=== PATIENT | female | born 1980 | race Caucasian/White ===

== ENCOUNTER 2019-01-05 22:06 | Emergency (ER) | payer SELFPAY ==
[~2019-01-05] VITALS: Ht 160 cm; Wt 49.9 kg
--- NOTE | 2019-01-05 22:06 | NUR ---
PT BIBA BLS. TAKEN TO BED 6. [place] [employer] AT BEDSIDE.
[2019-01-05 22:09] VITALS: BP 131/94
--- NOTE | 2019-01-05 22:16 | NUR ---
Dr. Gay examining patient.
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
[2019-01-05] MEDS ORDERED: ACETAMINOPHEN EXTRA STRENGTH 500 MG TAB PO ONE (22:25)
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
--- NOTE | 2019-01-05 22:38 | NUR ---
PT TAKEN TO RAD
--- NOTE | 2019-01-05 23:13 | NUR ---
PT RETURN FROM RAD
[2019-01-05] MEDS ORDERED: KETOROLAC 60 MG/2 ML VIAL IM ONE (23:20)
[2019-01-05 23:40] VITALS: BP 124/76
== END 2019-01-05 23:40 | disposition home or self-care (01) ==
LOC: MED 22:06
DX: S05.11XA Contusion of eyeball and orbital tissues, right eye, initial encounter (principal); S10.93XA Contusion of unspecified part of neck, initial encounter; S40.012A Contusion of left shoulder, initial encounter; S40.011A Contusion of right shoulder, initial encounter; S30.1XXA Contusion of abdominal wall, initial encounter; S93.401A Sprain of unspecified ligament of right ankle, initial encounter; S09.90XA Unspecified injury of head, initial encounter; J45.909 Unspecified asthma, uncomplicated; I10 Essential (primary) hypertension; F17.210 Nicotine dependence, cigarettes, uncomplicated; Z88.0 Allergy status to penicillin; Y04.0XXA Assault by unarmed brawl or fight, initial encounter; Y93.89 Activity, other specified; Y92.89 Other specified places as the place of occurrence of the external cause; Y99.0 Civilian activity done for income or pay
CPT/HCPCS: 70450; 70480; 71046; 72125; 73140; 73610; 96372; 99284; J1885

== ENCOUNTER 2020-09-05 21:12 | Emergency (ER) | payer MEDICAID, SELFPAY ==
[~2020-09-05] VITALS: Ht 165.1 cm; Wt 45.4 kg
[2020-09-05 21:25] VITALS: BP 131/89
--- NOTE | 2020-09-05 21:28 | NUR ---
PT BIB [place] [employer] IN [place].
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
--- NOTE | 2020-09-05 21:35 | NUR ---
PT REFUSED TDAP VACCINE EXPLAINED RISK AND BENEFITS. GAVE VIS TO READ PT STILL WISHES TO REFUSE AT THIS TIME, STATES "NO I AM OKAY". DR. DE OLIVEIRA NOTIFIED GAVE NO NEW ORDERS.
--- NOTE | 2020-09-05 21:36 | NUR ---
PTS HAND WOUND WAS CLEANED WITH NS. DEMABOND PLACED TO SEAL WOUND. PTS PMSC WNL.
[2020-09-05 21:55] VITALS: BP 131/89
--- NOTE | 2020-09-05 21:55 | NUR ---
PATIENT BIB [place] [employer]. PATIENT EXAMINED BY DR. DE OLIVEIRA. PATIENT MEDICALLY CLEARED AND RELEASED IN CUSTODY IN STABLE CONDITION. ORIGINAL PRE-BOOK FORM GIVEN TO OFFICER AMARI #[id number].
== END 2020-09-05 21:55 ==
LOC: MED 21:12
DX: S61.412A Laceration without foreign body of left hand, initial encounter (principal); J45.909 Unspecified asthma, uncomplicated; I10 Essential (primary) hypertension; Z88.0 Allergy status to penicillin; Z02.89 Encounter for other administrative examinations; Y04.8XXA Assault by other bodily force, initial encounter; Y93.89 Activity, other specified; Y92.89 Other specified places as the place of occurrence of the external cause; Y99.8 Other external cause status
CPT/HCPCS: 12001; 90715; 99283

== ENCOUNTER 2021-05-04 10:00 | Emergency (ER) | payer MEDICAID, SELFPAY ==
[~2021-05-04] VITALS: Ht 157.5 cm; Wt 45.4 kg
[~2021-05-04 10:00] MED LIST: QUET25TA PO; RIS1 PO; SULF-58 PO
--- NOTE | 2021-05-04 10:01 | NUR ---
PT BIBA TAKEN TO ER BED 5.
[2021-05-04 10:04] VITALS: BP 155/82
--- NOTE | 2021-05-04 10:13 | NUR ---
COLLECTED MICHELLE ANDREWS AND MICHELLE PIERSON. WALKED TO LAB.
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
--- NOTE | 2021-05-04 10:27 | NUR ---
IV ESTABLISHED TO RIGHT AC 20G, GOOD BLOOD RETURN, COLLECTED BLOOD GAVE TO KAREN NEGOTIATIONS DIRECTOR AT PT BEDSIDE.
--- NOTE | 2021-05-04 10:28 | NUR ---
PT STATES SHE IS UNABLE TO PROVIDE UA AT THIS TIME REQUESTED JUICE MADE AWARE, PROVIDED AT THIS TIME.
--- NOTE | 2021-05-04 10:36 | NUR ---
SPOKE WITH SHAD FROM POSION CONTROL. STATES SYMPTOMS CAN MIMIC AN ETHANOL INTOXICATION. PERFORM UDS, ASA LEVEL, CHEM, AND PLACE PT ON PUSHER RUNNER. MD MADE AWARE CONTINUE TO MONITOR.
--- NOTE | 2021-05-04 10:36 | NUR ---
RAD at bedside
[2021-05-04 10:43] LABS: BASOPHILS % (AUTO) 0.5 % (0.0-2.0); EOSINOPHILS # (AUTO) 0.1 K/uL (0-0.4); EOSINOPHILS % (AUTO) 1.3 % (0.0-4.0); HEMATOCRIT 36.8 % (36-48); LYMPHOCYTES # (AUTO) 1.6 K/uL (2.5-16.5); LYMPHOCYTES % (AUTO) 23.6 % (20.5-51.1); MEAN CORPUSCULAR HEMOGLOBIN 24 pg (27-31); MEAN CORPUSCULAR HGB CONC 33 g/dL (33-37); MEAN CORPUSCULAR VOLUME 73.7 fL (80-94); MONOCYTES # (AUTO) 0.8 K/uL (0.8-1.0); MONOCYTES % (AUTO) 11.5 % (1.7-9.3); NEUTROPHILS # (AUTO) 4.4 K/uL (1.8-7.7); NEUTROPHILS % (AUTO) 63.1 % (42.2-75.2); PLATELET COUNT (AUTO) 352 K/uL (140-450); RED BLOOD CELL COUNT(AUTO) 4.99 MIL/uL (4.20-5.40); RED CELL DISTRIBUTION WIDTH 16.9 % (11.6-13.7); WHITE BLOOD COUNT (AUTO) 6.9 K/uL (4.8-10.8)
--- NOTE | 2021-05-04 11:19 | NUR ---
PT SLEEPING ON RIGHT SIDE, VSS, WILL CONTINUE TO MONITOR.
[2021-05-04 11:35] LABS: ALBUMIN 3.9 g/dL (3.4-5.0); ANION GAP 14.9 (8-16); ASPARTATE AMINOTRANSFERASE 16 U/L (15-37); CARBON DIOXIDE 26.3 mmol/L (21-32); CHLORIDE 104 mmol/L (98-107); CREATININE 0.8 mg/dL (0.6-1.3); GFR ARICAN-AMERICAN 103 mL/min (>90); GLUCOSE 89 mg/dL (74-106); POTASSIUM 3.2 mmol/L (3.5-5.1); SODIUM SERUM 142 mmol/L (136-145); TOTAL BILIRUBIN 0.8 mg/dL (0.0-1.0); UREA NITROGEN, BLOOD 8 mg/dL (7-18)
[2021-05-04 11:36] LABS: SALICYLATE < 2.8 mg/dL (2.8-20.0)
[2021-05-04 12:03] LABS: ACETAMINOPHEN < 0.5 ug/ml (10-30)
--- NOTE | 2021-05-04 12:49 | NUR ---
PT SLEEPING, VISIBLE EQUAL RISE AND FALL OF CHEST, VSS, WILL CONTINUE TO MONITOR.
--- NOTE | 2021-05-04 13:29 | NUR ---
PT SUPINE, CALM AND COOPERATIVE, WILL CONTINUE TO MONITOR.
--- NOTE | 2021-05-04 14:26 | NUR ---
ATTEMPTED TO TELEPSYCH PT, PT REFUSING TO SPEAK WITH PSYCHIATRIST. WILL CONTINUE TO MONITOR.
--- NOTE | 2021-05-04 14:39 | NUR ---
PT LAYING ON LEFT SIDE, VSS, WILL CONTINUE TO MONITOR.
--- NOTE | 2021-05-04 15:13 | NUR ---
PT AMBULATED TO RESTROOM FOR UA COLLECTION.
--- NOTE | 2021-05-04 15:15 | NUR ---
PT AMBULATED TO ER BED 5 WITH A STEADY GAIT.
[2021-05-04 16:18] LABS: APPEARANCE,URINE CLEAR (CLEAR); BILIRUBIN,URINE NEGATIVE (NEGATIVE); BLOOD, URINE NEGATIVE (NEGATIVE); COLOR,URINE YELLOW (YELLOW); LEUKOCYTE ESTERASE ,URINE NEGATIVE (NEGATIVE); NITRITE, URINE NEGATIVE (NEGATIVE); UGLUCOSE NEGATIVE (NEGATIVE)
[2021-05-04 16:33] LABS: BARBITURATE, URINE NEGATIVE ng/ml (NEG <=200); BENZODIAZEPINE, URINE NEGATIVE ng/mL (NEG <=200); CANNABINOID, URINE NEGATIVE ng/mL (NEG <=50); COCAINE, URINE NEGATIVE ng/mL (NEG <=300); OPIATE, URINE NEGATIVE ng/mL (NEG <=2000); PHENCYCLIDINE SCREEN,URINE NEGATIVE ng/mL (NEG <=25)
--- NOTE | 2021-05-04 16:58 | NUR ---
PT RESTING HOB ELEVATED, EATING QUIETLY, VSS, WILL CONTINUE TO MONITOR.
--- NOTE | 2021-05-04 17:17 | NUR ---
Packet received for placement
--- NOTE | 2021-05-04 17:18 | NUR ---
Packet has been faxed to the folloeing facilities [facility]
--- NOTE | 2021-05-04 17:39 | NUR ---
SPOKE WITH DAGMAR FROM [facility]. ACCEPTING DR IS HUNTER CANDELARIO TO [facility]. PT CAN ARRIVE AT 0000. TRANSPORTATION TO BE SET UP.
--- NOTE | 2021-05-04 18:22 | NUR ---
PT PROVIDED WITH DINNER TRAY, WILL CONTINUE TO MONITOR.
--- NOTE | 2021-05-04 19:19 | NUR ---
RECEIVED REPORT FROM JAVI MAR
--- NOTE | 2021-05-04 20:37 | NUR ---
provided patient with water. patient is fidgeting, scratching, and says she is itchy. ERMD made aware
[2021-05-04] MEDS: HYDROXYZINE HYDROCHLORIDE 25 MG TAB PO ONE (20:56)
[2021-05-04] MEDS: POTASSIUM CHLORIDE 10 MEQ TABER PO ONE (21:37)
--- NOTE | 2021-05-04 21:45 | NUR ---
REPORT RECEIVED FROM JAVI GOODEN FOR CONTINUITY OF PT CARE AT THIS TIME.
--- NOTE | 2021-05-04 21:55 | NUR ---
PT APPEARS TO BE RESTING W EYES CLOSED IN R LATERAL POSITION. BLANKET ON. BREATHING EVEN AND UNLABORED. NAD NOTED, WILL CONTINUE TO MONITOR.
--- NOTE | 2021-05-05 02:43 | NUR ---
NO CHANGE IN PT STATUS AT THIS TIME.
--- NOTE | 2021-05-05 04:37 | NUR ---
NO CHANGE IN PT STATUS AT THIS TIME. BREATHING EVEN AND UNLABORED. NAD NOTED, WILL CONTINUE TO MONITOR.
--- NOTE | 2021-05-05 06:19 | NUR ---
PT APPEARS TO BE RESTING W EYES CLOSED IN R LATERAL POSITION W BLANKET ON. HOB SLIGHTLY ELEVATED, BED LOCKED IN LOWEST POSITION W X1 SIDERAIL UP. BREATHING EVEN AND UNLABORED. NAD NOTED, WILL CONTINUE TO MONITOR.
--- NOTE | 2021-05-05 07:08 | NUR ---
[facility] TRANSPORT AT BEDSIDE
--- NOTE | 2021-05-05 07:10 | NUR ---
SPOKE TO JAVI PERKINS FROM FROM [facility]. PER JAVI PERKINS PT STILL HAS A BED AT THE HOSPITAL. TO CALL BACK TO GIVE REPORT AT [phone].
--- NOTE | 2021-05-05 07:12 | NUR ---
Pt report given to JAVI HOPKINS. Transfer of care at this time.
--- NOTE | 2021-05-05 07:18 | NUR ---
Pt report given to JAVI LAINEZ FROM [facility]. Transfer of care at this time.
[2021-05-05 07:26] VITALS: BP 96/70
--- NOTE | 2021-05-05 07:26 | NUR ---
Patient to be transferred to [facility]. Receiving facility has accepting physician and available space. ER physician has signed transfer form. Patient or responsible alliance party has agreed to transfer and signed form. Patient belongings inventoried and will be sent with patient. Copy of nursing notes, lab reports, EKG, Physicians Orders and X-rays to be sent with patient. Report called to JAVI LAINEZ at receiving facility. [facility] ambulance service TAKING PT AT THIS TIME.
--- NOTE | 2021-05-05 07:26 | NUR ---
Rustam lal in EDM - 05/05/21 at 0730 by GO Pt report given to JAVI LAINEZ FROM [facility]. Transfer of care at this time.
== END 2021-05-05 07:26 ==
LOC: MED 10:00
DX: R45.851 Suicidal ideations (principal); F15.129 Other stimulant abuse with intoxication, unspecified; Z20.822 Contact with and (suspected) exposure to COVID-19; F20.9 Schizophrenia, unspecified; F31.9 Bipolar disorder, unspecified; J45.909 Unspecified asthma, uncomplicated; I10 Essential (primary) hypertension; Z79.2 Long term (current) use of antibiotics; Z79.899 Other long term (current) drug therapy; Z88.0 Allergy status to penicillin
CPT/HCPCS: 36415; 71045; 80053; 80305; 81003; 81025; 82550; 84484; 85025; 87426; 93005; 99285; G0480; G0482; Q0092; U0003

== ENCOUNTER 2021-07-09 17:55 | Emergency (ER) | payer MEDICAID ==
[~2021-07-09] VITALS: Ht 162.6 cm; Wt 45.4 kg
[2021-07-09 18:49] VITALS: BP 154/104
[2021-07-09] MEDS ORDERED: LIDOCAINE/EPI 1% 1:100000 20 ML VIAL INJ ONE ×2 (19:35→21:25)
[2021-07-09] MEDS ORDERED: BACITRACIN OINT 500 UNITS/GM PKT TP ONE ×2 (19:35→21:25)
[2021-07-09 20:00] LABS: BASOPHILS % (AUTO) 0.3 % (0.0-2.0); EOSINOPHILS % (AUTO) 0.5 % (0.0-4.0); HEMATOCRIT 30.3 % (36-48); HEMOGLOBIN 9.9 g/dL (12.0-16.0); LYMPHOCYTES # (AUTO) 1.1 K/uL (2.5-16.5); LYMPHOCYTES % (AUTO) 12.9 % (20.5-51.1); MEAN CORPUSCULAR HEMOGLOBIN 24 pg (27-31); MEAN CORPUSCULAR HGB CONC 33 g/dL (33-37); MEAN CORPUSCULAR VOLUME 73.5 fL (80-94); MONOCYTES # (AUTO) 0.8 K/uL (0.8-1.0); MONOCYTES % (AUTO) 9.5 % (1.7-9.3); NEUTROPHILS # (AUTO) 6.4 K/uL (1.8-7.7); NEUTROPHILS % (AUTO) 76.8 % (42.2-75.2); PLATELET COUNT (AUTO) 486 K/uL (140-450); RED BLOOD CELL COUNT(AUTO) 4.12 MIL/uL (4.20-5.40); RED CELL DISTRIBUTION WIDTH 16.1 % (11.6-13.7); WHITE BLOOD COUNT (AUTO) 8.3 K/uL (4.8-10.8)
[2021-07-09 20:18] LABS: ALBUMIN 3.6 g/dL (3.4-5.0); ANION GAP 10.2 (8-16); ASPARTATE AMINOTRANSFERASE 21 U/L (15-37); CARBON DIOXIDE 28.7 mmol/L (21-32); CHLORIDE 108 mmol/L (98-107); CREATININE 0.8 mg/dL (0.6-1.3); GFR ARICAN-AMERICAN 103 mL/min (>90); GLUCOSE 102 mg/dL (74-106); POTASSIUM 3.9 mmol/L (3.5-5.1); SODIUM SERUM 143 mmol/L (136-145); TOTAL BILIRUBIN 0.4 mg/dL (0.0-1.0); UREA NITROGEN, BLOOD 13 mg/dL (7-18)
[2021-07-09 20:19] LABS: SALICYLATE < 2.8 mg/dL (2.8-20.0)
[2021-07-09 20:20] LABS: ACETAMINOPHEN < 0.5 ug/ml (10-30)
--- NOTE | 2021-07-09 21:29 | NUR ---
ASSUMED CARE AT THIS TIME Addendum: 07/09/21 at 2130 by JASON AWAITING LACERATION REPair
--- NOTE | 2021-07-10 06:45 | NUR ---
ASSUMED CARE OF PT AT THIS TIME. PT SLEEPING WITH EVEN AND UNLABORED RESPIRATIONS NOTED, NO DISTRESS NOTED. WILL CONTINUE TO MONITOR
--- NOTE | 2021-07-10 10:07 | NUR ---
PT SLEEPING QUIETLY AT THIS TIME, EVEN RISE AND FALL OF CHEST OBSERVED. NO DISTRESS NOTED, WILL CONTINUE TO MONITOR
--- NOTE | 2021-07-10 13:17 | NUR ---
PT PROVIDED FOOD AT THIS TIME, ALL NEEDS MET.
--- NOTE | 2021-07-10 15:07 | NUR ---
PT AMBULATED TO RESTROOM WITH STEADY GAIT. PT PROVIDED NEW CLEAN BLANKET, ALL NEEDS MET AT THIS TIME.
[2021-07-10 18:21] LABS: BARBITURATE, URINE NEGATIVE ng/ml (NEG <=200); BENZODIAZEPINE, URINE NEGATIVE ng/mL (NEG <=200); CANNABINOID, URINE NEGATIVE ng/mL (NEG <=50); COCAINE, URINE NEGATIVE ng/mL (NEG <=300); OPIATE, URINE NEGATIVE ng/mL (NEG <=2000); PHENCYCLIDINE SCREEN,URINE NEGATIVE ng/mL (NEG <=25)
--- NOTE | 2021-07-10 18:59 | NUR ---
Packet received for placement Has been faxed to the following facilities [facility]
--- NOTE | 2021-07-10 19:10 | NUR ---
PT PROVIDED WITH DINNER TRAY. PT EATING QUIETLY AT THIS TIME.
--- NOTE | 2021-07-10 19:49 | NUR ---
REPORT GIVEN TO [employer]AR[employer] BOAT OPERATOR, TRANSFER OF CARE AT THIS TIME
--- NOTE | 2021-07-10 21:42 | NUR ---
PT SLEEPING. CHEST RISE AND FALL EVEN. ALL NEEDS MET AT THIS TIME
--- NOTE | 2021-07-11 00:12 | NUR ---
PT SLEEPING QUIETLY AT THIS TIME, EVEN RISE AND FALL OF CHEST OBSERVED. NO DISTRESS NOTED
--- NOTE | 2021-07-11 02:17 | NUR ---
PT SLEEPING QUIETLY AT THIS TIME, EVEN RISE AND FALL OF CHEST OBSERVED. NO DISTRESS NOTED
--- NOTE | 2021-07-11 04:13 | NUR ---
PT SLEEPING QUIETLY AT THIS TIME, EVEN RISE AND FALL OF CHEST OBSERVED. NO DISTRESS NOTED
--- NOTE | 2021-07-11 07:15 | NUR ---
Patient appears to be resting comfortably in bed. Vital Signs within normal limits. Respirations even and unlabored.
--- NOTE | 2021-07-11 10:39 | NUR ---
Patient appears to be resting comfortably in bed. Vital Signs within normal limits. Respirations even and unlabored.
--- NOTE | 2021-07-11 10:42 | NUR ---
called for update. pt did not want to talk to him right now "because she want to sleep a little longer.'
--- NOTE | 2021-07-11 15:16 | NUR ---
LUNCH GIVEN TO PT
--- NOTE | 2021-07-11 18:41 | NUR ---
PT MOVED TO ER BED 6. [address] WILL CONTINUE TO MONITOR
--- NOTE | 2021-07-11 19:35 | NUR ---
RESTING IN BED WITH EYES CLOSED, RESPIRATIONS REGULAR AND UNLABORED
--- NOTE | 2021-07-11 22:06 | NUR ---
Packet has been faxed to the following facilities [facility]
--- NOTE | 2021-07-12 | NUR ---
RESTING IN BED WITH EYES CLOSED. RESPIRATIONS REGULAR AND UNLABORED
--- NOTE | 2021-07-12 06:00 | NUR ---
Patient appears to be resting comfortably in bed. Vital Signs within normal limits. Respirations even and unlabored.
--- NOTE | 2021-07-12 07:11 | NUR ---
JOSHUA OF PT CALLING.
--- NOTE | 2021-07-12 07:12 | NUR ---
GRANDFATHER PHONE NUMBER [phone] ([place]) [place] STARKS
--- NOTE | 2021-07-12 12:01 | NUR ---
Patient's 5150 set to today at 17:30. Will need re-eval for ongoing placement. Please fax new 5150 to Call Center at [phone] if ongoing criteria for placement is needed
--- NOTE | 2021-07-12 12:53 | NUR ---
PT EATING LUNCH.
--- NOTE | 2021-07-12 15:58 | NUR ---
DR Santacruz SPOKE WITH THE PT, WILL WAIT FOR HER EVALUTION NOTES.
--- NOTE | 2021-07-12 17:30 | NUR ---
[place] [employer] AT BEDSIDE FOR 50 HOLD EVALUATION.
--- NOTE | 2021-07-12 17:46 | NUR ---
[facility] PT OFFICER ALBA DID NOT MEET 51/50 CRITERIA. PT NO LONGER ON HOLD. DR ANDREA NOTIFIED. DR ANDREA ASKED TO SPEAK WITH DR Santacruz. CALLED DR Santacruz AND LEFT A MESSAGE FOR HER TO CALL BACK.
--- NOTE | 2021-07-12 19:27 | NUR ---
GAVE REPORT TO KIRILL CALDWELL.
--- NOTE | 2021-07-12 22:17 | NUR ---
PT MOVED TO CHAIR E
--- NOTE | 2021-07-13 01:42 | NUR ---
ER MD AND PSYCH BOTH DO NOT FEEL COMFORTABLE DISCHARTGING THE PATIENT DUE TO A LACK OF SUPPORT SYSTEM. PT WILL REMAIN IN THE ER UNTIL PSYCH CAN COME IN THE MORNING TO REEVALUATE THE PT.
--- NOTE | 2021-07-13 02:50 | NUR ---
Patient appears to be resting comfortably in bed supine. Vital Signs within normal limits. Respirations even and unlabored. Bed in lowest setting w/ rails up x2.
--- NOTE | 2021-07-13 07:25 | NUR ---
REPORT GIVEN TO GREG NIEVES
[2021-07-13] MEDS ORDERED: QUET25TA PO (10:01)
[2021-07-13] MEDS ORDERED: QUEtiapine FUMARATE 25 MG TAB PO STA (10:01)
[2021-07-13] MEDS ORDERED: RISP0.5T3 PO (10:01)
[2021-07-13] MEDS ORDERED: BACI1PAC6 TP (10:05)
[2021-07-13] MEDS ORDERED: risperiDONE 1 MG TAB ONE (10:15)
[2021-07-13 11:25] VITALS: BP 110/60
--- NOTE | 2021-07-13 11:26 | NUR ---
Patient discharged with v/s stable. Written and verbal after care instructions given and explained. Patient alert, oriented and verbalized understanding of instructions. Ambulatory with steady gait. All questions addressed prior to discharge. ID band removed. Patient advised to follow up with PMD. Opportunity to ask questions provided and answered.
[2021-07-14] MEDS ORDERED: risperiDONE 1 MG TAB PO SCH (09:00)
== END 2021-07-13 11:25 | disposition home or self-care (01) ==
LOC: MED 17:55
DX: S41.112A Laceration without foreign body of left upper arm, initial encounter (principal); Z20.822 Contact with and (suspected) exposure to COVID-19; F25.0 Schizoaffective disorder, bipolar type; F31.9 Bipolar disorder, unspecified; J45.909 Unspecified asthma, uncomplicated; I10 Essential (primary) hypertension; F17.210 Nicotine dependence, cigarettes, uncomplicated; Z88.0 Allergy status to penicillin; Z79.899 Other long term (current) drug therapy; W26.0XXA Contact with knife, initial encounter; Y93.89 Activity, other specified; Y92.89 Other specified places as the place of occurrence of the external cause; Y99.8 Other external cause status
CPT/HCPCS: 12001; 36415; 80053; 80305; 84703; 85025; 87426; 99285; G0480; G0482; J2001; U0003

== ENCOUNTER 2021-12-15 15:48 | Emergency (ER) | payer MEDICAID ==
[~2021-12-15] VITALS: Ht 157.5 cm; Wt 43.8 kg
[~2021-12-15 15:48] MED LIST changes: +BACI1PAC6 TP; +RISP0.5T3 PO
[2021-12-15 16:17] VITALS: BP 108/64
--- NOTE | 2021-12-15 17:00 | NUR ---
DR BELL AT BEDSIDE EVALUATING PT
--- NOTE | 2021-12-15 17:02 | NUR ---
SPOKE WITH PT , RADHA. STATES PT HAS VISUAL AND AUDITORY HALLUCINATIONS AND ACTIVELY USES CRYSTAL METH X3 WEEKLY. STATES PT HAS BEEN PREVIOUSLY ADMITED TO PSYCH FACILITY DUE TO EMOTIONAL DISTRESS AND OUTBURSTS. ALSO NOTES PT WEIGHT LOSS.
[2021-12-15] MEDS ORDERED: NACL 0.9% 1,000 ML IV ONE (17:15)
[2021-12-15 17:44] LABS: APPEARANCE,URINE CLEAR (CLEAR); BILIRUBIN,URINE 1+ (NEGATIVE); BLOOD, URINE NEGATIVE (NEGATIVE); LEUKOCYTE ESTERASE ,URINE NEGATIVE (NEGATIVE); NITRITE, URINE NEGATIVE (NEGATIVE); UGLUCOSE NEGATIVE (NEGATIVE)
[2021-12-15 17:55] LABS: COLOR,URINE AMBER (YELLOW)
[2021-12-15 18:05] LABS: BASOPHILS % (AUTO) 0.7 % (0.0-2.0); EOSINOPHILS # (AUTO) 0.2 K/uL (0-0.4); HEMATOCRIT 31.9 % (36-48); HEMOGLOBIN 10.1 g/dL (12.0-16.0); LYMPHOCYTES # (AUTO) 1.9 K/uL (2.5-16.5); LYMPHOCYTES % (AUTO) 34.4 % (20.5-51.1); MEAN CORPUSCULAR HEMOGLOBIN 21 pg (27-31); MEAN CORPUSCULAR HGB CONC 32 g/dL (33-37); MEAN CORPUSCULAR VOLUME 67.2 fL (80-94); MONOCYTES # (AUTO) 0.7 K/uL (0.8-1.0); MONOCYTES % (AUTO) 13.9 % (1.7-9.3); NEUTROPHILS # (AUTO) 2.6 K/uL (1.8-7.7); PLATELET COUNT (AUTO) 306 K/uL (140-450); RED BLOOD CELL COUNT(AUTO) 4.75 MIL/uL (4.20-5.40); RED CELL DISTRIBUTION WIDTH 17.8 % (11.6-13.7); WHITE BLOOD COUNT (AUTO) 5.4 K/uL (4.8-10.8)
[2021-12-15 18:13] LABS: BARBITURATE, URINE NEGATIVE ng/ml (NEG <=200); BENZODIAZEPINE, URINE NEGATIVE ng/mL (NEG <=200); CANNABINOID, URINE NEGATIVE ng/mL (NEG <=50); COCAINE, URINE NEGATIVE ng/mL (NEG <=300); OPIATE, URINE NEGATIVE ng/mL (NEG <=2000); PHENCYCLIDINE SCREEN,URINE NEGATIVE ng/mL (NEG <=25)
[2021-12-15 18:21] LABS: ANION GAP 10.2 (8-16); CARBON DIOXIDE 27.3 mmol/L (21-32); CREATININE 0.7 mg/dL (0.6-1.3); POTASSIUM 3.5 mmol/L (3.5-5.1); TOTAL BILIRUBIN 0.2 mg/dL (0.0-1.0)
[2021-12-15 18:48] VITALS: BP 119/73
--- NOTE | 2021-12-15 18:49 | NUR ---
IV removed, catheter intact and site benign. Applied folded 4x4 gauze and tape to stop bleeding.
== END 2021-12-15 18:55 | disposition home or self-care (01) ==
LOC: MED 15:48
DX: F15.129 Other stimulant abuse with intoxication, unspecified (principal); F17.210 Nicotine dependence, cigarettes, uncomplicated; R19.7 Diarrhea, unspecified
CPT/HCPCS: 36415; 80053; 80305; 81003; 81025; 84703; 85025; 96360; 99283; J7030